=== PATIENT | male | born 1970 | race Caucasian/White ===

== ENCOUNTER 2018-01-08 14:27 | Emergency (ER) | payer MEDICAID, OTHER ==
[2018-01-08 14:52] LABS: ADD MAN DIFF? NO
[2018-01-08] MEDS: KETOROLAC 15 MG INJ IV (14:55)
[2018-01-08] MEDS: LORAZEPAM 2 MG INJ IV (14:55)
[2018-01-08] MEDS: SOD CHLORIDE 0.9% 1,000 ML IV (14:56)
[2018-01-08 14:57] LABS: WHITE BLOOD COUNT 10.3 10^3/ul (4.8-10.8)
[2018-01-08 14:57] LABS: BASOPHILS % 0.4 % (0.0-2.0); EOSINOPHILS # 0.1 10^3/ul (0.0-0.5); EOSINOPHILS % 0.6 % (0.0-7.0); HEMATOCRIT 44.9 % (42.0-52.0); HEMOGLOBIN 15.1 g/dl (14.0-18.0); MEAN CORPUSCULAR HEMOGLOBIN 31.7 pg (29.0-33.0); MEAN CORPUSCULAR HGB CONC 33.6 g/dl (32.0-37.0); MEAN CORPUSCULAR VOLUME 94.1 fl (82.0-101.0); MEAN PLATELET VOLUME 10.8 fl (7.4-10.4); MONOCYTE # 0.7 10^3/ul (0.3-0.9); MONOCYTES % 6.6 % (0.0-11.0); NEUTROPHIL # 7.5 10^3/ul (1.6-7.5); PLATELET COUNT 275 10^3/UL (140-415); RED BLOOD COUNT 4.77 10^6/ul (4.70-6.10)
[2018-01-08 15:20] LABS: ALANINE AMINOTRANSFERASE 27 IU/L (13-69); ALBUMIN 3.8 g/dl (3.3-4.9); ALBUMIN/GLOBULIN RATIO 1.08; ALKALINE PHOSPHATASE 55 IU/L (42-121); ANION GAP 13 (8-16); ASPARTATE AMINO TRANSFERASE 24 IU/L (15-46); BILIRUBIN,INDIRECT 0.3 mg/dl (0-1.1); BILIRUBIN,TOTAL 0.3 mg/dl (0.2-1.3); BLOOD UREA NITROGEN 10 mg/dl (7-20); CALCIUM 9.8 mg/dl (8.4-10.2); CARBON DIOXIDE 26 mmol/L (21-31); CHLORIDE 108 mmol/L (97-110); CREATININE 0.89 mg/dl (0.61-1.24); GLUCOSE 126 mg/dl (70-220); LIPASE 55 U/L (23-300); POTASSIUM 3.9 mmol/L (3.5-5.1); SODIUM 143 mmol/L (135-144); TOTAL PROTEIN 7.3 g/dl (6.1-8.1)
[2018-01-08 15:30] LABS: TROPONIN-I < 0.012 ng/ml (0.000-0.120)
== END 2018-01-08 17:21 | disposition home or self-care (01) ==
LOC: E/R 14:27
DX: F43.0 Acute stress reaction (principal); F43.20 Adjustment disorder, unspecified; F41.9 Anxiety disorder, unspecified; R20.2 Paresthesia of skin; R07.9 Chest pain, unspecified
CPT/HCPCS: 36415; 80053; 83690; 84484; 85025; 93005; 96374; 96375; 99284-25

== ENCOUNTER 2018-07-31 12:20 | Emergency (ER) | payer OTHER, MEDICAID ==
[2018-07-31 14:02] LABS: ADD MAN DIFF? NO
[2018-07-31 14:06] LABS: BASOPHILS % 0.4 % (0.0-2.0); EOSINOPHILS # 0.1 10^3/ul (0.0-0.5); EOSINOPHILS % 0.9 % (0.0-7.0); HEMATOCRIT 43.5 % (42.0-52.0); HEMOGLOBIN 14.5 g/dl (14.0-18.0); LYMPHOCYTES # 2.3 10^3/ul (0.8-2.9); LYMPHOCYTES % 23.7 % (15.0-51.0); MEAN CORPUSCULAR HEMOGLOBIN 31.4 pg (29.0-33.0); MEAN CORPUSCULAR HGB CONC 33.3 g/dl (32.0-37.0); MEAN CORPUSCULAR VOLUME 94.2 fl (82.0-101.0); MEAN PLATELET VOLUME 10.3 fl (7.4-10.4); MONOCYTE # 0.8 10^3/ul (0.3-0.9); MONOCYTES % 8.9 % (0.0-11.0); NEUTROPHIL # 6.2 10^3/ul (1.6-7.5); NEUTROPHILS % 65.8 % (39.0-77.0); PLATELET COUNT 267 10^3/UL (140-415); RED BLOOD COUNT 4.62 10^6/ul (4.70-6.10); RED CELL DISTRIBUTION WIDTH 12.1 % (11.5-14.5)
[2018-07-31 14:06] LABS: WHITE BLOOD COUNT 9.5 10^3/ul (4.8-10.8)
[2018-07-31 14:24] LABS: ANION GAP 12 (5-13); BLOOD UREA NITROGEN 17 mg/dl (7-20); CALCIUM 9.9 mg/dl (8.4-10.2); CARBON DIOXIDE 24 mmol/L (21-31); CHLORIDE 105 mmol/L (97-110); CREATININE 0.96 mg/dl (0.61-1.24); Estimated GFR > 60 mL/min (>60); GLUCOSE 87 mg/dl (70-220); POTASSIUM 4.2 mmol/L (3.5-5.1); SODIUM 141 mmol/L (135-144)
[2018-07-31 14:36] LABS: TROPONIN-I < 0.012 ng/ml (0.000-0.120)
== END 2018-07-31 16:03 | disposition home or self-care (01) ==
LOC: E/R 12:20
DX: R20.2 Paresthesia of skin (principal)
CPT/HCPCS: 80048; 82962; 84484; 85025; 93005; 99284-25

== ENCOUNTER 2018-10-03 17:43 | Emergency (ER) | payer OTHER ==
[2018-10-03] MEDS: KETOROLAC 30 MG INJ IM (18:47)
== END 2018-10-03 19:28 | disposition home or self-care (01) ==
LOC: FTE 19:28
DX: S61.210A Laceration without foreign body of right index finger without damage to nail, initial encounter (principal); F17.210 Nicotine dependence, cigarettes, uncomplicated; W26.0XXA Contact with knife, initial encounter; Y92.9 Unspecified place or not applicable
CPT/HCPCS: 12001; 96372; 99284-25

== ENCOUNTER 2018-10-14 16:01 | Emergency (ER) | payer OTHER | END 2018-10-14 17:52 | disposition home or self-care (01) | LOC: E/R 16:01 | DX: Z48.02 Encounter for removal of sutures (principal); Z87.891 Personal history of nicotine dependence; Z48.01 Encounter for change or removal of surgical wound dressing | CPT/HCPCS: 99283; Z7502 ==